=== PATIENT | female | born 1990 | race Caucasian/White ===

== ENCOUNTER 2022-06-23 10:45 | Outpatient (CLI) | payer OTHER, SELFPAY ==
[2022-06-23] VITALS (8 sets, daily range): BP systolic 130–146; BP diastolic 78–97; PULSE 91–106
[2022-06-23 11:21] LABS: Alanine Aminotransferase 15 U/L (6-35); Albumin Level 3.7 g/dL (3.5-5.1); Alkaline Phosphatase 143 U/L (38-126); Anion Gap 10 mmol/L (8-16); Aspartate Amino Transferase 23 U/L (14-36); Bilirubin,Total 0.4 mg/dL (0.2-1.3); Blood Urea Nitrogen 10 mg/dL (7-17); Calcium 8.1 mg/dL (8.4-10.2); Carbon Dioxide 17 mmol/L (22-30); Chloride 104 mmol/L (98-107); Estimated Glomerular Filt Rate > 60; Glucose 109 mg/dL (65-110); Potassium 3.6 mmol/L (3.4-5.0); Sodium 131 mmol/L (137-145)
[2022-06-23 11:28] LABS: Basophils Absolute Auto 0.1 K/mm3 (0.0-0.1); Basophils Percent Auto 0.8 % (0.2-1.2); Eosinophils Absolute Auto 0.1 K/mm3 (0-0.3); Eosinophils Percent Auto 0.4 % (0-4.4); Hematocrit 35.9 % (37.0-47.0); Hemoglobin 11.5 g/dL (12.0-15.0); Immature Granulocyte Absolute 0.34 K/mm3 (0.00-0.031); Immature Granulocyte Percent A 2.6 % (0-0.5); Lymphocytes Absolute Auto 2.27 K/mm3 (0.9-3.2); Lymphocytes Percent Auto 17.5 % (18.3-44.2); Mean Corpuscular Hemoglobin 28.6 pg (26-34); Mean Corpuscular Volume 89.3 fl (80-100); Mean Platelet Volume 10.9 fl (7.4-10.4); Monocytes Absolute Auto 0.8 K/mm3 (0.1-0.6); Monocytes Percent Auto 6.4 % (2.6-8.5); Neutrophils Absolute Auto 9.4 K/mm3 (1.3-6.7); Neutrophils Percent Auto 72.3 % (45.5-73.1); Platelet Count Result 248 k/mm3 (150-375); Red Blood Count 4.02 M/mm3 (4.2-5.4); Red Cell Distribution Width 13.3 % (11.5-14.5); White Blood Count 12.9 K/mm3 (4.5-10.0)
[2022-06-23 12:10] LABS: Add Urine Microscopic? NO; Appearance Urine Slightly Cloudy (Clear); Bilirubin Urine Negative (Negative); Blood Urine Negative (Negative); Color Urine Light Yellow (Yellow); Glucose Urine UA Negative (Negative); Ketones Urine Negative (Negative); Leukocyte Esterase Ur Negative LEU/UL (NEGATIVE); Nitrate Urine Negative (Negative); Protein Urine Negative (Negative); Specific Grav Ur <= 1.005 (1.001-1.035); Urobilinogen Urine 0.2 mg/dL (<2.0)
[2022-06-23 12:18] LABS: Creatinine Urine 30.1 mg/dL; Total Protein Urine Random 13 mg/dL; Ur Ttl Prot Creatinine Ratio 0.43 mg/mg (0-0.20)
--- NOTE | 2022-06-24 07:31 | PM.OBTRLD ---
OB - Triage/Final Diagnosis Visit Information Date of evaluation: 06/23/22 Reason for evaluation: other ( gestational hypertension) Comments/Additional reasons for admission: I have assessed the risk for this patient, Sherron Jaime, and determined that she would benefit from observation care. Evaluation Laboratory results: Laboratory Tests 06/23/22 06/23/22 06/23/22 10:56 10:56 10:56 WBC 12.9 H RBC 4.02 L Hgb 11.5 L Hct 35.9 L MCV 89.3 MCH 28.6 MCHC 32.0 RDW 13.3 Plt Count 248 MPV 10.9 H Immature Gran % (Auto) 2.6 H Neut % (Auto) 72.3 Lymph % (Auto) 17.5 L [place] % (Auto) 6.4 Eos % (Auto) 0.4 Baso % (Auto) 0.8 Lymph # (Auto) 2.27 [place] # (Auto) 0.8 H Eos # (Auto) 0.1 Baso # (Auto) 0.1 Abs Immat Gran (auto) 0.34 H Absolute Neuts (auto) 9.4 H Absolute Nucleated RBC 0.0 Nucleated RBC % 0.0 Sodium Potassium Chloride Carbon Dioxide Anion Gap BUN Creatinine Estim Creat Clear Calc Estimated GFR Glucose Uric Acid Calcium Total Bilirubin AST ALT Alkaline Phosphatase Total Protein Albumin Urine Color Light yellow Urine Appearance Slightly cloudy Urine pH 6.0 Ur Specific [place] <= 1.005 Urine Protein Negative Urine Glucose (UA) Negative Urine Ketones Negative Ur Blood (Man) Negative Urine Nitrate Negative Urine Bilirubin Negative Urine Urobilinogen 0.2 Ur Leukocyte Esterase Negative U Random Total Protein 13 Urine Creatinine 30.1 Protein/Creat Ratio 2 0.43 H 06/23/22 10:56 WBC RBC Hgb Hct MCV MCH MCHC RDW Plt Count MPV Immature Gran % (Auto) Neut % (Auto) Lymph % (Auto) [place] % (Auto) Eos % (Auto) Baso % (Auto) Lymph # (Auto) [place] # (Auto) Eos # (Auto) Baso # (Auto) Abs Immat Gran (auto) Absolute Neuts (auto) Absolute Nucleated RBC Nucleated RBC % Sodium 131 L Potassium 3.6 Chloride 104 Carbon Dioxide 17 L Anion Gap 10 BUN 10 Creatinine 0.40 L Estim Creat Clear Calc Not Reportable Estimated GFR > 60 Glucose 109 Uric Acid 5.0 Calcium 8.1 L Total Bilirubin 0.4 AST 23 ALT 15 Alkaline Phosphatase 143 H Total Protein 7.0 Albumin 3.7 Urine Color Urine Appearance Urine pH Ur Specific [place] Urine Protein Urine Glucose (UA) Urine Ketones Ur Blood (Man) Urine Nitrate Urine Bilirubin Urine Urobilinogen Ur Leukocyte Esterase U Random Total Protein Urine Creatinine Protein/Creat Ratio 2 Vital signs: Vital Signs - 24 hr 06/23/22 11:11 06/23/22 11:15 06/23/22 11:30 Pulse Rate 106 H 102 H 99 Blood Pressure 137/94 H 135/97 H 139/97 H Blood Pressure [Left Arm] 06/23/22 11:45 06/23/22 12:00 06/23/22 12:15 Pulse Rate 98 92 103 H Blood Pressure 146/94 H 136/80 130/87 Blood Pressure [Left Arm] 06/23/22 12:30 06/23/22 12:39 Pulse Rate 91 Blood Pressure 133/78 Blood Pressure [Left Arm] 133/78
== END 2022-06-23 12:39 | disposition home or self-care (01) ==
LOC: ANHOBOP 10:49 → ANHLDR 10:49
PROVIDERS: Visit Provider Obstetrics & Gynecology
DX: O13.9 Gestational [pregnancy-induced] hypertension without significant proteinuria, unspecified trimester (principal); Z3A.00 Weeks of gestation of pregnancy not specified
CPT/HCPCS: 36415; 59025; 80053; 81003; 82570; 84156; 84550; 85025; 87086; 99199

== ENCOUNTER 2022-06-26 09:21 | Inpatient (IN) | payer OTHER, SELFPAY ==
[2022-06-26] VITALS (18 sets, daily range): BP systolic 123–147; BP diastolic 63–101; PULSE 74–104; TEMP 36.1–36.8; BMI 33.8
[2022-06-26 10:22] LABS: Basophils Absolute Auto 0.1 K/mm3 (0.0-0.1); Basophils Percent Auto 0.7 % (0.2-1.2); Eosinophils Absolute Auto 0.1 K/mm3 (0-0.3); Eosinophils Percent Auto 0.4 % (0-4.4); Hemoglobin 11.6 g/dL (12.0-15.0); Immature Granulocyte Absolute 0.26 K/mm3 (0.00-0.031); Immature Granulocyte Percent A 1.9 % (0-0.5); Lymphocytes Absolute Auto 2.09 K/mm3 (0.9-3.2); Lymphocytes Percent Auto 15.3 % (18.3-44.2); Mean Corpuscular HGB Conc 33.1 g/dl (32-36); Mean Corpuscular Hemoglobin 27.9 pg (26-34); Mean Corpuscular Volume 84.1 fl (80-100); Mean Platelet Volume 10.9 fl (7.4-10.4); Monocytes Absolute Auto 0.8 K/mm3 (0.1-0.6); Neutrophils Absolute Auto 10.3 K/mm3 (1.3-6.7); Neutrophils Percent Auto 75.7 % (45.5-73.1); Platelet Count Result 280 k/mm3 (150-375); Red Blood Count 4.16 M/mm3 (4.2-5.4); Red Cell Distribution Width 13.3 % (11.5-14.5); White Blood Count 13.7 K/mm3 (4.5-10.0)
[2022-06-26] MEDS: DINOPROSTONE 10 MG VAG INSERT VAGINAL ×2 (10:45→23:40)
--- NOTE | 2022-06-26 12:14 | PM.IMHP ---
H&P: HPI History of Present Illness Date/Time: 06/26/22 12:14 Chief Complaint: Elevated blood pressure at term Narrative: 32-year-old 1 para 0 whose last menstrual period was 10/03/2021, EDC is 07/10/2022, presents for medical induction of labor secondary to elevated blood pressures. Three days ago she had a diastolic of 105. She had PIH labs drawn and they were normal. She returned today in her blood pressure still elevated. In light of her being 38 weeks with the early ultrasound confirming dates she is admitted for induction she is negative for group B strep PMFSH Family History Family History Father Acute myocardial infarction Mother Seizure Social History Social History Smoking status: Never smoker Second hand tobacco smoke exposure: Yes Substance use: never Lack of Transportation: No Lack of Food: Never True Current Housing: I Have Housing Concerned About Future Housing: No Difficulty Paying Gas/Electric Bills: No Difficulty Paying for Meds: No Currently Unemployed: No Education: Bachelor's Degree Difficulty w/ Childcare or Family Care: No Spiritual care concerns: No Meds Home Medications and Allergies Allergies Allergy/AdvReac Type Severity Reaction Status Date / Time amoxicillin Allergy Unknown Verified 06/18/22 12:34 Vital Signs Vital Signs - 24 hr 06/26/22 09:56 06/26/22 10:00 06/26/22 10:15 Pulse Rate 104 H 101 H 98 Blood Pressure 145/98 H 147/101 H 141/91 H Oxygen Delivery 06/26/22 10:30 06/26/22 10:46 06/26/22 11:01 Pulse Rate 103 H 91 84 Blood Pressure 134/89 135/85 137/91 H Oxygen Delivery 06/26/22 11:16 06/26/22 11:30 06/26/22 11:46 Pulse Rate 92 90 75 Blood Pressure 129/83 132/89 131/88 Oxygen Delivery 06/26/22 12:00 06/26/22 10:14 Pulse Rate 87 Blood Pressure 135/88 Oxygen Delivery Room Air Exam Const: General: cooperative, healthy appearing and comfortable Orientation/consciousness: oriented to person, oriented to place and oriented to time HENMT: Head: normal to inspection Neck: Neck: normal visual inspection Resp: Effort & Inspection: normal respiratory effort Cardio: Rate: regular rate Rhythm: regular rhythm Heart sounds: S1 normal heart sound present GI: Inspection: normal to inspection ( gravid soft uterus) : Speculum Exam - Vagina: normal appearance of the vagina Speculum Exam - Cervix: normal appearance of the cervix and Cervical os closed Other: heart tones reassuring H&P: Results Labs Labs: Short CBC 06/26/22 Range/Units 09:58 WBC 13.7 H (4.5-10.0) K/mm3 Hgb 11.6 L (12.0-15.0) g/dL Hct 35.0 L (37.0-47.0) % Plt Count 280 (150-375) k/mm3 Assessment and Plan Assessment and plan (1) Term : Code(s): Z34.90 - Encounter for supervision of normal , unspecified, unspecified trimester Status: Acute (2) Gestational hypertension: Code(s): O13.9 - Gestational [-induced] hypertension without significant proteinuria, unspecified trimester Status: Acute Plan medical induction of labor. Spontaneous vaginal delivery is expected. She has an epidural candidate
--- NOTE | 2022-06-26 17:27 | WPDANESEPP ---
Anes - Eval Pre Procedure Procedure: Labor Epidural Date/Time: 06/26/22 17:27 Surgeon: Tima Kapoor Preop Diagnosis: Pain c contractions Pre Op Diagnosis: Induction of Labor Patient Data Age: 32 Gender: F Height: 1.75 m Weight: 104 kg Last Vital Signs Pulse 100 06/26/22 17:00 BP 138/85 06/26/22 17:00 O2 Del Method Room Air 06/26/22 10:14 Allergies Allergy/AdvReac Type Severity Reaction Status Date / Time amoxicillin Allergy Unknown Verified 06/18/22 12:34 Laboratory Tests 06/26/22 06/26/22 06/26/22 09:58 09:58 09:58 WBC 13.7 K/mm3 H K/mm3 (4.5-10.0) RBC 4.16 M/mm3 L M/mm3 (4.2-5.4) Hgb 11.6 g/dL L g/dL (12.0-15.0) Hct 35.0 % L % (37.0-47.0) MCV 84.1 fl D fl (80-100) MCH 27.9 pg pg (26-34) MCHC 33.1 g/dl g/dl (32-36) RDW 13.3 % % (11.5-14.5) Plt Count 280 k/mm3 k/mm3 (150-375) MPV 10.9 fl H fl (7.4-10.4) Immature Gran % (Auto) 1.9 % H % (0-0.5) Neut % (Auto) 75.7 % H % (45.5-73.1) Lymph % (Auto) 15.3 % L % (18.3-44.2) [place] % (Auto) 6.0 % % (2.6-8.5) Eos % (Auto) 0.4 % % (0-4.4) Baso % (Auto) 0.7 % % (0.2-1.2) Lymph # (Auto) 2.09 K/mm3 K/mm3 (0.9-3.2) [place] # (Auto) 0.8 K/mm3 H K/mm3 (0.1-0.6) Eos # (Auto) 0.1 K/mm3 K/mm3 (0-0.3) Baso # (Auto) 0.1 K/mm3 K/mm3 (0.0-0.1) Abs Immat Gran (auto) 0.26 K/mm3 H K/mm3 (0.00-0.031) Absolute Neuts (auto) 10.3 K/mm3 H K/mm3 (1.3-6.7) Absolute Nucleated RBC 0.0 K/mm3 K/mm3 (0.0-0.012) Nucleated RBC % 0.0 % % (0.0-0.2) RPR Pending Blood Type AB Positive Antibody Screen Negative Patient hx anesthesia problems: none Family hx anesthesia problems: none Results Review: All pre-operative results and documents have been reviewed as part of the pre-operative evaluation. COUNT INCLUDES [facility] Family History Family History Father Acute myocardial infarction Mother Seizure Social History Social History Smoking status: Never smoker Second hand tobacco smoke exposure: Yes Substance use: never Lack of Transportation: No Lack of Food: Never True Current Housing: I Have Housing Concerned About Future Housing: No Difficulty Paying Gas/Electric Bills: No Difficulty Paying for Meds: No Currently Unemployed: No Education: Bachelor's Degree Difficulty w/ Childcare or Family Care: No Spiritual care concerns: No Exam Day of Procedure 06/26/22 17:27
[2022-06-27] VITALS (183 sets, daily range): BP systolic 88–184; BP diastolic 52–109; PULSE 63–211; RESP 16; TEMP 36.1–36.9; O2SAT 81–100
--- NOTE | 2022-06-27 06:59 | PM.OBPNLAB ---
Pain Control Date/time seen: 06/27/22 06:59 Pain control: tolerating well Pelvic Exam Dilation (cm): 2 Effacement (%): 50 station: -2 Amniotic membrane status: Ruptured
[2022-06-27] MEDS: OXYTOCIN 30 UNITS/NS 500 ML 30 UNITS/500 ML BAG 6 UNITS IV CONT (07:25)
[2022-06-27] MEDS: LACTATED RINGERS 1,000 ML 125 ML IV CONT ×2 (07:25→10:01)
[2022-06-27] MEDS: ONDANSETRON INJ 4 MG/2 ML VIAL IV PUSH (09:06)
--- NOTE | 2022-06-27 11:00 | PM.OBPNLAB ---
Pain Control Date/time seen: 06/27/22 11:00 Pain control: tolerating well and epidural Pelvic Exam Dilation (cm): 3 Effacement (%): 100 station: -1 Amniotic membrane status: Ruptured
[2022-06-27 14:45] LABS: Rapid Plasma Reagin Non-Reactive (NonReactive)
--- NOTE | 2022-06-27 17:21 | PM.OBPRVD ---
OB - Delivery Note Procedure Delivery date: 06/27/22 Procedure: mil Events: Gestational Hypertension Induction method: Per Cervidil Protocol Delivery augmentation: Pitocin Delivery monitor: External FHT and Internal Uterine Route of delivery: Episiotomy description: None Laceration Description: None Quantitative Blood Loss (ml): 60 Anesthesia type: Epidural Disposition: Floor Baby Date of : 06/27/22 Time of : 17:10 Weeks of gestation at delivery: 38 Infant gender: Female Weight (pounds): 6 Weight (ounces): 5 presentation: vertex position: Right Occiput Anterior Placenta delivery description: Spontaneous Cord Vessel Description: 3 Vessels and Delayed Cord Clamping score one minute: 9 score five minutes: 9
[2022-06-27] MEDS: OXYTOCIN 30 UNITS/NS 500 ML 30 UNITS/500 ML BAG 125 UNITS IV CONT (17:49)
[2022-06-27] MEDS: WITCH HAZEL 40 PADS 1 PAD TOPICAL (19:28)
[2022-06-27] MEDS: IBUPROFEN 600 MG TABLET PO (19:28)
[2022-06-27] MEDS: BENZOCAINE 20% AER SPR (*SP) 56 GM CAN 1 SPRAY TOPICAL (19:28)
--- NOTE | 2022-06-27 19:31 | PC.NURSE ---
Patient transferred to post room # [id number] via ( W/C ). Support person present. Oriented to unit, room, information board, rooming in, admission packet and security measures. Patient verbalizes understanding.
[2022-06-28 01:16] VITALS: BP 125/81; PULSE 79; RESP 16; TEMP 36.6; O2SAT 97
[2022-06-28 05:48] VITALS: BP 124/86; PULSE 85; RESP 14; TEMP 36.7; O2SAT 98
[2022-06-28] MEDS: IBUPROFEN 600 MG TABLET PO (06:13)
[2022-06-28 06:32] LABS: Hematocrit 31.2 % (37.0-47.0); Hemoglobin 10.3 g/dL (12.0-15.0)
[2022-06-28 07:30] VITALS: BP 114/61; PULSE 90; RESP 18; TEMP 36.4
--- NOTE | 2022-06-28 07:43 | WPDANLDPN2 ---
Anes-Prog Note L&D Date/Time: 06/28/22 07:43 Comfortable throughout: labor and delivery Neuraxial method: epidural Epidural/Spinal procedure site: clean & non-tender Neuro status: Neuro function grossly intact. Cardiovascular status: normal Respiratory status: normal Airway patency: baseline Mental status: baseline Post-Op hydration status: normal Vital Signs: Last Vital Signs Temp 36.7 C 06/28/22 05:48 Pulse 85 06/28/22 05:48 Resp 14 06/28/22 05:48 BP 124/86 06/28/22 05:48 Pulse Ox 98 06/28/22 05:48 O2 Del Method Room Air 06/26/22 10:14 Pain score (VAS): 2/10 I/O: Intake & Output 06/27/22 06/27/22 06/28/22 15:59 23:59 07:59 Intake Total 1000 Output Total 60 Balance 1000 -60 Post-procedural complaints: none Patient feedback: Patient satisfied with anesthetic care.
[2022-06-28] MEDS: ACETAMINOPHEN 325 MG TABLET 650 MG PO (09:57)
[2022-06-28] MEDS: MULTIVIT/MIN/PREN/FOL AC/IRON TABLET 1 TAB PO (09:57)
--- NOTE | 2022-06-28 11:39 | PM.OBPNVD ---
OB - PN: Subj Subjective Date/time seen: 06/28/22 11:39 Narrative: Pain OK. Would like to go home. OB - PN: Obj Data Labs 06/28/22 06:05 Labs: Laboratory Results - last 24 hr 06/26/22 06/28/22 09:58 06:05 Hgb 10.3 L Hct 31.2 L RPR Non-reactive OB - PN A/P Plan Comments: A: PPD#1, doing well. BP normalized after delivery. P: Home to f/u 6 weeks. Exam Psych: Other: AVSS ABD soft, nontender, fundus firm EXT nontender
--- NOTE | 2022-06-28 11:42 | PM.OBDSVD ---
DS: Admitting Diagnosis Discharge Date 06/28/22 Admitting Diagnosis IUP at 38 weeks Gestational hypertension DS: Discharge Diagnosis Discharge Diagnosis (1) Gestational hypertension: Code(s): O13.9 - Gestational [-induced] hypertension without significant proteinuria, unspecified trimester Status: Acute (2) (normal spontaneous vaginal delivery): Code(s): O80 - Encounter for full-term uncomplicated delivery Status: Acute OB - DS: Summary OB Procedures : PIH Mgmt OB Procedures Intrapartum: Spontaneous Vag Delivery OB Procedures: : None Time Spent with Patient Time attestation: Total time spent providing and/or coordinating discharge services: DS: Data Data Completed and Pending Labs on day of discharge: Labs from last 24 hours 06/28/22 06/26/22 06:05 09:58 Hgb 10.3 L Hct 31.2 L RPR Non-reactive Discharge Plan Discharge Attending physician on discharge: Nito Lazcano Discharging Clinician: Patrick Ott Patient Disposition: Home, Self-Care Activity: pelvic rest Diet: regular Discharge Instructions: Call or return if temperature above 100.4? F, increased abdominal pain, increased vaginal bleeding or any new problems. Stand Alone Forms: General Discharge Information Follow-up/Referrals: Nito Lazcano MD [Physician] - 6 Weeks Discharge Medications: New ibuprofen 600 mg tablet 600 mg PO Q6H PRN (Reason: cramps) Qty: 30 0RF Date of admission: 06/26/22 09:21 Primary Care Provider: UNKNOWN,DOCTOR Admitting Provider: Nito Lazcano Attending physician on admission: Nito Lazcano Condition: Stable
[2022-06-28 12:50] VITALS: BP 126/86; PULSE 74; RESP 18; TEMP 37.2
[2022-06-28] MEDS: TETANUS,DIPHTHERIA,AC PERTUSSIS ADULT (0.5 ML) BOOSTRIX IM (13:09)
[2022-06-28 17:05] VITALS: BP 130/78; PULSE 88; RESP 16; TEMP 36.7
[2022-06-30 13:00] VITALS: BP 136/86; PULSE 80; RESP 20; TEMP 36.8; O2SAT 99
== END 2022-06-28 18:55 | disposition home or self-care (01) | DRG 807 ==
LOC: ANHLDR 06-27 08:33 → ANHOB2 06-28 11:43 → ANHLDR 07-01 10:01 → ANHOB2 07-01 10:01
PROVIDERS: Admitting Provider Obstetrics & Gynecology; Visit Provider Obstetrics & Gynecology
DX: O13.4 Gestational [pregnancy-induced] hypertension without significant proteinuria, complicating childbirth (principal); Z37.0 Single live birth; Z3A.38 38 weeks gestation of pregnancy
CPT/HCPCS: 36415; 85014; 85018; 85025; 86592; 86850; 86900; 86901; 90715; A9270; J2405; J2590; J2795; J7120